=== PATIENT | male | born 1985 | race American Indian/Alaskan Native ===

== ENCOUNTER 2020-07-10 18:01 | Emergency (ER) | payer SELFPAY ==
[2020-07-10 18:09] VITALS: BP 138/94
[2020-07-10 18:59] LABS: Basophils % (Auto) 0.5 % (0.0-1.8); Eosinophils # (Auto) 0.2 K/mm3 (0.0-0.4); Eosinophils % (Auto) 3.1 % (0.0-4.3); Hematocrit 44.1 % (35.5-45.6); Hemoglobin 15.1 gm/dl (11.8-15.2); Lymphocytes # (Auto) 1.9 K/mm3 (1.2-5.4); Lymphocytes % (Auto) 27.3 % (13.4-35.0); Mean Corpuscular HGB Conc 34 % (32-34); Mean Corpuscular Volume 90 fl (84-94); Monocytes # (Auto) 0.4 K/mm3 (0.0-0.8); Monocytes % (Auto) 6.3 % (0.0-7.3); Platelet Count 284 K/mm3 (140-440); Red Blood Count 4.91 M/mm3 (3.65-5.03); Red Cell Distribution Width 13.5 % (13.2-15.2)
[2020-07-10 19:22] LABS: Alanine Aminotransferase 14 units/L (7-56); Albumin 4.6 g/dL (3.9-5); BUN/Creatinine Ratio 7; Blood Urea Nitrogen 6 mg/dL (9-20); Calcium 9.6 mg/dL (8.4-10.2); Hemolysis Index 9
[2020-07-10] MEDS ORDERED: METOCLOPRAMIDE 10 MG/2 ML INJ IV ONE (19:28)
[2020-07-10] MEDS ORDERED: diphenhydrAMINE 50 MG/ML VIAL IV ONE (19:28)
[2020-07-10] MEDS ORDERED: SODIUM CHLORIDE 0.9% 1000 ML 1,000 ML IV ONE ×2 (19:28→21:59)
[2020-07-10] MEDS ORDERED: DICYCLOMINE 20 MG/2 ML INJ IM ONE (19:32)
[2020-07-10 19:33] LABS: Bacteria,Urine 2+ /HPF (Negative); Bilirubin,Urine NEG (Negative); Blood,Urine SM (Negative); Color,Urine Yellow (Yellow); Mucus,Urine 2+ /HPF; Protein,Urine <15 mg/dL mg/dL (Negative); Urobilinogen,Urine < 2.0 mg/dL (<2.0)
--- NOTE | 2020-07-10 20:26 | Emergency Department Report ---
ED Abdominal Pain HPI - General Chief Complaint: Abdominal Pain Stated Complaint: ULCER/NAUSEA/BODY PAIN Time Seen by Provider: 07/10/20 19:27 Source: patient Mode of arrival: Ambulatory Limitations: No Limitations - History of Present Illness Initial Comments: Pt is a 34 y/o aam with hx of peptic ulcer who presents for abd pain epigastric with n/v x 3 weeks, pt denies fever , however has not tolerated po intake in the past 5 days. States low grade fever at home , temp 99.1 in triage tonight. symptoms are exacerbated by po intake , symptoms are relieved by nothing tried. pt not currently take medications for peptic ulcer disease, states occasional ETOH, Smoking. MD Complaint: abdominal pain, flank pain Severity scale (0 -10): 4 - Related Data Previous Rx's Medication Instructions Recorded Last Taken Type Ranitidine HCl [Zantac] 300 mg PO QDAY #60 tablet 11/05/13 Unknown Rx Acetaminophen/Codeine [Tylenol 1 tab PO Q6H PRN #12 tab 07/10/20 Unknown Rx /Codeine # 3 tab] Clarithromycin 500 mg PO BID 10 Days #24 tablet 07/10/20 Unknown Rx Metoclopramide [Reglan] 10 mg PO Q6H PRN #30 tablet 07/10/20 Unknown Rx Omeprazole 40 mg PO BID 15 Days #30 capsule. 07/10/20 Unknown Rx metroNIDAZOLE [Flagyl] 500 mg PO Q8HR 10 Days #30 tablet 07/10/20 Unknown Rx Allergies Allergy/AdvReac Type Severity Reaction Status Date / Time No Known Allergies Allergy Verified 07/10/20 18:02 ED Review of Systems ROS: Stated complaint: ULCER/NAUSEA/BODY PAIN Other details as noted in HPI Constitutional: malaise Eyes: denies: eye pain, eye discharge, vision change ENT: denies: ear pain, throat pain Respiratory: denies: cough, shortness of breath, wheezing Cardiovascular: as per HPI Endocrine: no symptoms reported Gastrointestinal: abdominal pain, nausea, vomiting. denies: diarrhea, co nstipation, melena Genitourinary: denies: urgency, dysuria, frequency, hematuria, discharge Musculoskeletal: denies: back pain, joint swelling, arthralgia Skin: denies: rash, lesions Neurological: as per HPI Psychiatric: denies: anxiety, depression Hematological/Lymphatic: as per HPI ED Past Medical Hx - Past Medical History Previous Medical History?: No - Surgical History Past Surgical History?: No - Social History Smoking Status: Current Some Day Smoker Substance Use Type: None - Medications Home Medications: Home Medications Medication Instructions Recorded Confirmed Last Taken Type Ranitidine HCl [Zantac] 300 mg PO QDAY #60 tablet 11/05/13 Unknown Rx Acetaminophen/Codeine [Tylenol 1 tab PO Q6H PRN #12 tab 07/10/20 Unknown Rx /Codeine # 3 tab] Clarithromycin 500 mg PO BID 10 Days #24 tablet 07/10/20 Unknown Rx Metoclopramide [Reglan] 10 mg PO Q6H PRN #30 tablet 07/10/20 Unknown Rx Omeprazole 40 mg PO BID 15 Days #30 capsule. 07/10/20 Unknown Rx metroNIDAZOLE [Flagyl] 500 mg PO Q8HR 10 Days #30 tablet 07/10/20 Unknown Rx ED Physical Exam - General Limitations: No Limitations General appearance: alert, in no apparent distress - Head Head exam: Present: atraumatic, normocephalic - Eye Eye exam: Present: normal appearance - ENT ENT exam: Present: mucous membranes moist - Neck Neck exam: Present: normal inspection, full ROM. Absent: tenderness - Respiratory Respiratory exam: Present: normal lung sounds bilaterally. Absent: respiratory distress, wheezes, stridor, chest wall tenderness - Cardiovascular Cardiovascular Exam: Present: regular rate, normal rhythm, normal heart sounds. Absent: systolic murmur, diastolic murmur, rubs, gallop - GI/Abdominal GI/Abdominal exam: Present: soft, tenderness (epigastric , LUQ), normal bowel sounds. Absent: distended, guarding, rebound, rigid, bruit, hernia - Rectal Rectal exam: Present: deferred - Extremities Exam Extremities exam: Present: normal inspection, full ROM. Absent: tenderness - Back Exam Back exam: Present: normal inspection, full ROM. Absent: tenderness, CVA tenderness (R), CVA tenderness (L) - Neurological Exam Neurological exam: Present: alert, oriented X3, CN II-XII intact, normal gait - Psychiatric Psychiatric exam: Present: normal affect, normal mood - Skin Skin exam: Present: warm, dry, intact, normal color. Absent: rash ED Course Vital Signs 07/10/20 07/10/20 18:08 19:32 Temperature 99.1 F Pulse Rate 116 H 99 H Respiratory 18 18 Rate Blood Pressure 138/94 [Right] O2 Sat by Pulse 100 98 Oximetry ED Medical Decision Making - Lab Data Result diagrams: 07/10/20 18:14 07/10/20 18:14 Labs 07/10/20 07/10/20 07/10/20 18:14 18:14 18:18 WBC 6.9 RBC 4.91 Hgb 15.1 Hct 44.1 MCV 90 MCH 31 MCHC 34 RDW 13.5 Plt Count 284 Lymph % (Auto) 27.3 Ralls % (Auto) 6.3 Eos % (Auto) 3.1 Baso % (Auto) 0.5 Lymph # (Auto) 1.9 Ralls # (Auto) 0.4 Eos # (Auto) 0.2 Baso # (Auto) 0.0 Seg Neutrophils % 62.8 Seg Neutrophils # 4.3 Sodium 141 Potassium 3.5 L Chloride 102.1 Carbon Dioxide 23 Anion Gap 19 BUN 6 L Creatinine 0.9 Estimated GFR > 60 BUN/Creatinine Ratio 7 Glucose 113 H Calcium 9.6 Total Bilirubin 0.90 AST 16 ALT 14 Alkaline Phosphatase 74 Total Protein 7.4 Albumin 4.6 Albumin/Globulin Ratio 1.6 Lipase 95 H Urine Color Yellow Urine Turbidity Cloudy Urine pH 7.0 Ur Specific [place] 1.017 Urine Protein <15 mg/dl Urine Glucose (UA) Neg Urine Ketones 20 Urine Blood Sm Urine Nitrite Neg Urine Bilirubin Neg Urine Urobilinogen < 2.0 Ur Leukocyte Esterase Tr Urine WBC (Auto) 21.0 H Urine RBC (Auto) 4.0 Urine Bacteria (Auto) 2+ Urine WBC Clumps 2+ Urine Mucus 2+ Urine Yeast (Budding) 2+ - Radiology Data Radiology results: report reviewed, image reviewed Findings Reporting MD: Danette Young Dictation Time: July 10, 2020 20:05 [place] Rug [employer]ter: Not available Client Engagement Specialist Date: CT ABDOMEN AND PELVIS WITH CONTRAST INDICATION / CLINICAL INFORMATION: abd pain n/v , hx peptic ulcer. TECHNIQUE: Axial CT images were obtained through the abdomen and pelvis after 100 mL Omnipaque [address] scans at this location are performed using CT dose reduction for ALARA by means of automated exposure control. COMPARISON: None available. FINDINGS: LOWER CHEST: No significant abnormality. LIVER: No significant abnormality. GALLBLADDER: No significant abnormality. BILE DUCTS: No significant abnormality. PANCREAS: No significant abnormality. SPLEEN: No significant abnormality. ADRENALS: No significant abnormality. RIGHT KIDNEY / URETER: No significant abnormality. LEFT KIDNEY / URETER: No significant abnormality. STOMACH / SMALL BOWEL: Stomach is moderately dilated and fluid-filled. There is moderate thickening and edema of the pylorus/duodenal bulb which may be related to peptic ulcer disease. No full-thickness ulceration or perforation. No small bowel abnormality. COLON: No significant abnormality. APPENDIX: No significant abnormality. PERITONEUM: No free fluid. No free air. No fluid collection. LYMPH NODES: No significant adenopathy. AORTA / ARTERIES: No significant abnormality. IVC / VEINS: No significant abnormality. URINARY BLADDER: No significant abnormality. REPRODUCTIVE ORGANS: No significant abnormality. ADDITIONAL FINDINGS: None. SKELETAL SYSTEM: No significant abnormality. IMPRESSION: 1. Thickening and edema of the pylorus and duodenal bulb possibly related to peptic ulcer disease. No full-thickness perforation or free air. 2. Dilated, fluid-filled stomach. Signer Name: Danette Young MD [facility] [address] , [address] [place] [address] P [phone] F [phone] - Medical Decision Making CT: Thickening and edema of the pylorus and duodenal bulb possibly related to peptic ulcer disease. No full-thickness perforation or free air. 2. Dilated, fluid-filled stomach. pt declines admission discussion, Abdominal pain is resolved patient tolerating p.o. at this time plan DC to home with prescriptions, follow-up with GI as scheduled, follow-up with PCP in 2 to 3 days. given strict instructions to return to ed if symptoms worsenPatient verbalized agreement and understanding with same. Critical care attestation.: If time is entered above; I have spent that time in minutes in the direct care of this critically ill patient, excluding procedure time. ED Disposition Clinical Impression: Peptic ulcer Nausea and vomiting Qualifiers: Vomiting type: unspecified Vomiting Intractability: non-intractable Qualified Code(s): R11.2 - Nausea with vomiting, unspecified Disposition: DC-01 TO HOME OR SELFCARE Is pt being admited?: No Does the pt Need Aspirin: No Condition: Stable Instructions: Peptic Ulcer (ED), Diet for Ulcers and Gastritis (ED) Prescriptions: Clarithromycin 500 mg PO BID 10 Days #24 tablet metroNIDAZOLE [Flagyl] 500 mg PO Q8HR 10 Days #30 tablet Omeprazole 40 mg PO BID 15 Days #30 capsule. Metoclopramide [Reglan] 10 mg PO Q6H PRN #30 tablet PRN Reason: nausea and vomiting Acetaminophen/Codeine [Tylenol /Codeine # 3 tab] 1 tab PO Q6H PRN #12 tab PRN Reason: pain Referrals: [facility] [Provider Group] - 3-5 Days DANYEL ESPINOSA MD [Referring] - 3-5 Days Forms: Work/School Release Form(ED) Time of Disposition: 23:10
--- NOTE | 2020-07-10 21:09 | Cat Scan Report ---
CT ABDOMEN AND PELVIS WITH CONTRAST INDICATION / CLINICAL INFORMATION: abd pain n/v , hx peptic ulcer. TECHNIQUE: Axial CT images were obtained through the abdomen and pelvis after 100 mL Omnipaque [address] scans at this location are performed using CT dose reduction for ALARA by means of automated exposure control. COMPARISON: None available. FINDINGS: LOWER CHEST: No significant abnormality. LIVER: No significant abnormality. GALLBLADDER: No significant abnormality. BILE DUCTS: No significant abnormality. PANCREAS: No significant abnormality. SPLEEN: No significant abnormality. ADRENALS: No significant abnormality. RIGHT KIDNEY / URETER: No significant abnormality. LEFT KIDNEY / URETER: No significant abnormality. STOMACH / SMALL BOWEL: Stomach is moderately dilated and fluid-filled. There is moderate thickening a nd edema of the pylorus/duodenal bulb which may be related to peptic ulcer disease. No full-thickness ulceration or perforation. No small bowel abnormality. COLON: No significant abnormality. APPENDIX: No significant abnormality. PERITONEUM: No free fluid. No free air. No fluid collection. LYMPH NODES: No significant adenopathy. AORTA / ARTERIES: No significant abnormality. IVC / VEINS: No significant abnormality. URINARY BLADDER: No significant abnormality. REPRODUCTIVE ORGANS: No significant abnormality. ADDITIONAL FINDINGS: None. SKELETAL SYSTEM: No significant abnormality. IMPRESSION: 1. Thickening and edema of the pylorus and duodenal bulb possibly related to peptic ulcer disease. No full-thickness perforation or free air. 2. Dilated, fluid-filled stomach. Signer Name: Danette Young MD Signed: 07/10/2020 9:05 PM Workstation Name: [id number]
[2020-07-10] MEDS ORDERED: FAMOTIDINE 20 MG/2 ML INJ IV ONE (21:59)
[2020-07-10] MEDS ORDERED: cefTRIAXone/NS 1 GM/50 ML 1 GM/50 ML BAG IV ONE (22:01)
[2020-07-10] MEDS ORDERED: MORPHINE 4 MG/1 ML INJ IV ONE (22:02)
== END 2020-07-10 23:30 | disposition home or self-care (01) ==
LOC: ED 18:01
DX: K27.9 Peptic ulcer, site unspecified, unspecified as acute or chronic, without hemorrhage or perforation (principal); R11.2 Nausea with vomiting, unspecified; F17.200 Nicotine dependence, unspecified, uncomplicated; Z79.899 Other long term (current) drug therapy
CPT/HCPCS: 36415; 74177; 80053; 81001; 83690; 85025; 87086; 96361; 96365; 96372; 96375; 99284; J0500; J0696; J1200; J2270; J2765; J7030; Q9967